=== PATIENT | male | born 1995 | race American Indian/Alaskan Native ===

== ENCOUNTER 2017-03-24 17:13 | Emergency (ER) | payer SELFPAY ==
[2017-03-24 17:48] VITALS: BP 116/62
[2017-03-24] MEDS ORDERED: SUDAFED PO ONE (19:22)
--- NOTE | 2017-03-25 21:15 | Emergency Department Report ---
Entered by DARLENE DAVID, acting as scribe for CATRACHITA CHRISTIANSEN PA. ED ENT HPI - General Chief complaint: Earache Stated complaint: LT EAR CLOGGED Time Seen by Provider: 03/24/17 18:11 Source: patient Mode of arrival: Ambulatory Limitations: No Limitations - History of Present Illness Initial comments: 22 y/o male presents c/o left ear being clogged up that started a month ago. Sx include nasal congestion but pt denies ear pain or fever. He denies water or any objects in ear. Pt notes he has seasonal allergies. No additional Sx -: month(s) (1) Location: L ear Severity: mild Quality: constant Consistency: constant Worsens with: none Associated Symptoms: denies: other (ear pain, fever, loss of hearing) - Related Data Previous Rx's Medication Instructions Recorded Last Taken Type Cetirizine HCl [ZyrTEC] 10 mg PO DAILY #30 tab.rapdis 03/24/17 Unknown Rx Pseudoephedrine [Sudafed] 30 mg PO BID #20 tablet 03/24/17 Unknown Rx Allergies Allergy/AdvReac Type Severity Reaction Status Date / Time No Known Allergies Allergy Verified 03/24/17 17:48 ED Dental HPI - General Chief complaint: Earache Stated complaint: LT EAR CLOGGED Time Seen by Provider: 03/24/17 18:11 Source: patient Mode of arrival: Ambulatory Limitations: No Limitations - Related Data Previous Rx's Medication Instructions Recorded Last Taken Type Cetirizine HCl [ZyrTEC] 10 mg PO DAILY #30 tab.rapdis 03/24/17 Unknown Rx Pseudoephedrine [Sudafed] 30 mg PO BID #20 tablet 03/24/17 Unknown Rx Allergies Allergy/AdvReac Type Severity Reaction Status Date / Time No Known Allergies Allergy Verified 03/24/17 17:48 ED Review of Systems Comment: All other systems reviewed and negative Constitutional: denies: fever ENT: congestion (nasal), other (ear "clogged" but pt denies loss of hearing, ear drainage). denies: ear pain ED Past Medical Hx - Past Medical History Previous Medical History?: No - Surgical History Past Surgical History?: No - Social History Smoking Status: Current Every Day Smoker Substance Use Type: Alcohol - Medications Home Medications: Home Medications Medication Instructions Recorded Confirmed Last Taken Type Cetirizine HCl [ZyrTEC] 10 mg PO DAILY #30 tab.rapdis 03/24/17 Unknown Rx Pseudoephedrine [Sudafed] 30 mg PO BID #20 tablet 03/24/17 Unknown Rx ED Physical Exam - General Limitations: No Limitations - Other Other exam information: GENERAL: Patient is alert and oriented x 3. No apparent distress, normal gait, atraumatic. HEAD: Head is normocephalic and atraumatic. EYES: Extraocular movements are intact. EARS: Symmetrical, atraumatic, non tender. Left ear: clear of cerumen, serous, mild fluid and wax, clear TM. Right ear: yellow fluid on TM, mild erythmea, mild cerumen. No mastoid tenderness bilaterally, no tragus tenderness bilaterally NOSE: Nose symmetrical, nontender. Nares appeared normal. MOUTH:Mouth is well hydrated and without lesions. NECK: Supple. Non edematous, no carotid bruits. No lymphadenopathy or thyromegaly. LUNGS: Symmetrical with respiration. No wheezing, rales or crackles, CTAB. HEART: Regular rate and rhythm with normal S1/S2 present. No murmurs, rubs, or gallops. ABDOMEN: Soft, nondistended. Nontender to palpation on all quadrants. No organomegaly was noted. Positive bowel sounds. No CVA tenderness. SKIN: Warm and dry. No lesions, ulceration or induration present NEUROLOGIC: No focal deficit. ED Course Vital Signs 03/24/17 17:45 Temperature 98.3 F Pulse Rate 78 Respiratory 17 Rate Blood Pressure 116/62 O2 Sat by Pulse 100 Oximetry ED Medical Decision Making - Medical Decision Making 22-year-old male presents with serous otitis media of the left ear. ED course: Patient received pseudoephedrine ED. Discussed the patient's symptoms will resolve on its own. Home Medications of pseudoephedrine and Zyrtec daily. Discussed no need for antibiotics as exam shows no infectious process. Discussed with patient to follow up with PCP as referred, and to return to the ED if his symptoms return or worsen. Patient states understanding and will follow instructions. Vital signs stable, patient is in no acute distress. ED Disposition Clinical Impression: Serous otitis media Disposition: DISCHARGED TO HOME OR SELFCARE Is pt being admited?: No Does the pt Need Aspirin: No Condition: Stable Instructions: Sinusitis (ED), Otitis Media (ED) Additional Instructions: Take your medication as prescribed Follow-up with primary care physician as discussed. If symptoms worsen or return to the ED Prescriptions: Cetirizine HCl [ZyrTEC] 10 mg PO DAILY #30 tab.rapdis Pseudoephedrine [Sudafed] 30 mg PO BID #20 tablet Referrals: PRIMARY CARE, [Primary Care Provider] - 3-5 Days [facility] [Outside] - 3-5 Days [facility] [Outside] - 3-5 Days [facility] [Outside] - 3-5 Days Forms: Accompanied Note, Work/School Release Form(ED) Time of Disposition: 18:38 This documentation as recorded by the FRANKIE greer RYAN,accurately reflects the service I personally performed and the decisions made by ,CATRACHITA CHRISTIANSEN PA.
== END 2017-03-24 18:52 | disposition home or self-care (01) ==
LOC: ED 17:13
DX: H65.92 Unspecified nonsuppurative otitis media, left ear (principal); F17.200 Nicotine dependence, unspecified, uncomplicated
CPT/HCPCS: 99282